=== PATIENT | male | born 1995 | race Caucasian/White ===

== ENCOUNTER 2018-12-28 21:41 | Emergency (ER) | payer OTHER ==
[2018-12-28 22:05] VITALS: TEMP 98.3
[2018-12-28] MEDS ORDERED: LIDOCAINE 1%-EPI 1:100,000 20 ML VIAL SQ STA (22:56)
--- NOTE | 2018-12-28 23:48 | ED ---
Wound/Laceration HPI - General Chief Complaint: Wound/Laceration Stated Complaint: [facility]-Leg Lac Time Seen by Provider: 12/28/18 22:49 Source: patient, RN notes reviewed Mode of arrival: ambulatory Limitations: no limitations - History of Present Illness Initial Comments: 22-year-old male presents emergency Department chief complaint of left leg laceration. Patient states that he was doing down haziness a utility knife to cut some plastic pads. Patient states that he poked his leg. Patient states that around 1pm states that he wrapped it up and then checked it several hours later and states that was squirting blood. Patient denies any numbness or tingling states it is sore on the knee states has full range of motion. Patient's tetanus is up-to-date his last tetanus was within the last year. Patient offers no other complaints. - Related Data Home Medications Medication Instructions Recorded Confirmed Naproxen 750 mg PO BID 12/28/18 12/28/18 Previous Rx's Medication Instructions Recorded Cephalexin [Keflex] 500 mg PO Q6HR #28 cap 12/28/18 Allergies Allergy/AdvReac Type Severity Reaction Status Date / Time No Known Allergies Allergy Verified 12/28/18 22:05 Review of Systems ROS Statement: Those systems with pertinent positive or pertinent negative responses have been documented in the HPI. ROS Other: All systems not noted in ROS Statement are negative. Past Medical History Past Medical History: No Reported History History of Any Multi-Drug Resistant Organisms: None Reported Past Surgical History: No Surgical Hx Reported Past Psychological History: No Psychological Hx Reported Smoking Status: Never smoker Past Alcohol Use History: None Reported Past Drug Use History: None Reported General Exam Limitations: no limitations General appearance: alert, in no apparent distress Head exam: Present: atraumatic, normocephalic, normal inspection Respiratory exam: Present: normal lung sounds bilaterally. Absent: respiratory distress, wheezes, rales, rhonchi, stridor Cardiovascular Exam: Present: regular rate, normal rhythm, normal heart sounds. Absent: systolic murmur, diastolic murmur, rubs, gallop, clicks Extremities exam: Present: other (Left leg there is a 1 cm laceration distal of the knee on the medial aspect pedal pulses posterior tibialis and dorsal pedal equal bilaterally no discoloration patient's full range of motion of the knee) Neurological exam: Present: alert, oriented X3, reflexes normal. Absent: motor sensory deficit Skin exam: Present: warm, dry, intact, normal color Course Vital Signs 12/28/18 22:01 Temperature 98.3 F Pulse Rate 63 Respiratory 20 Rate Blood Pressure 124/68 O2 Sat by Pulse 100 Oximetry Procedures - Laceration Laceration #1 Consent Obtained: verbal consent Indication: laceration Site: lower extremity (Left leg) Size (cm): 1 Description: linear Depth: simple, single layer Anesthetic Used: lidocaine 1%, with epi Anesthesia Technique: local infiltration Amount (mls): 5 Pre-repair: wound explored, irrigated extensively, deep structures intact Type of Sutures: nylon Size of Sutures: 3-0 Number of Sutures: 2 Technique: simple, interrupted Patient Tolerated Procedure: well, no complications Medical Decision Making - Medical Decision Making 23-year-old male presented for left leg laceration. Patient complained of pulsatile bleeding though on exam there is no evidence of this he is neurovascularly intact x-ray was obtained no abnormality. Sutures were placed patient's neurovascular intact and will be discharged. Tetanus update patient placed on antibiotics. Disposition Clinical Impression: Laceration of left leg Disposition: HOME SELF-CARE Condition: Stable Instructions (If sedation given, give patient instructions): Care For Your Stitches (ED), Laceration (ED) Additional Instructions: Please return to the Emergency Department if symptoms worsen or any other concerns. Prescriptions: Cephalexin [Keflex] 500 mg PO Q6HR #28 cap Is patient prescribed a controlled substance at d/c from ED?: No Referrals: Henry Acevedo DO [Primary Care Provider] - 1-2 days Time of Disposition: 23:47
--- NOTE | 2018-12-28 23:50 | XR ---
History: ITS.REASON XR Reason: laceration Exam: XR LEFT KNEE 2 views Comparison: None available FINDINGS: No fracture, osseous injury, dislocation or joint effusion. Curvilinear mild areas of density along the medial soft tissues may represent bandage without a definite radiopaque foreign body identified. IMPRESSION: No fracture, osseous injury, dislocation or joint effusion. Curvilinear mild areas of density along the medial soft tissues may represent bandage without a definite radiopaque foreign body identified, clinically correlate.
[2018-12-29 00:31] VITALS: BP 122/81; PULSE 75; RESP 18
== END 2018-12-29 00:31 | disposition home or self-care (01) ==
LOC: EC 21:41
DX: S81.012A Laceration without foreign body, left knee, initial encounter (principal); W26.0XXA Contact with knife, initial encounter; Y93.89 Activity, other specified; Y99.0 Civilian activity done for income or pay
CPT/HCPCS: 12001; 99283